=== PATIENT | female | born 1960 | race African-American/Black ===

== ENCOUNTER 2021-09-14 09:17 | Inpatient (IN) | payer MEDICARE, MEDICAID ==
[~2021-09-14] VITALS: Ht 154.9 cm; Wt 83.9 kg
[~2021-09-14 09:17] MED LIST: AMLO10TA80 PO; ASPI-1406 PO; BENA5TAB6 PO; CLON0.3T PO; COR3 PO; DULO30CA2 PO; ESOM40CA PO; GABA-532 PO; INSLAN SQ; INSU100I3 SQ; LIP40 PO; METO5TAB2 PO; MILN50TA PO; NITR0.4T49 SL
[2021-09-14] MEDS ORDERED: KETOROLAC 30MG/ML VIAL IV STA (10:04)
[2021-09-14 10:26] LABS: HEMOGLOBIN. 10.2 g/dL (12.0-16.0); MEAN CORPUSCULAR HEMOGLOBIN 24.7 pg (28.0-32.0); MEAN CORPUSCULAR VOLUME 74.8 fL (81.0-99.0); MEAN PLATELET VOLUME 8.8 fl (7.4-10.4); PLATELET 319 x1000/uL (130-400); RED BLOOD CELL COUNT 4.14 mill/uL (4.2-5.4); RED CELL DISTRIBUTION WIDTH 17.8 % (11.6-14.6)
[2021-09-14 10:31] LABS: CHLORIDE 92 mEq/L (98-107)
[2021-09-14 11:07] LABS: PLATELET ESTIMATE NORMAL
[2021-09-14 11:37] LABS: CLARITY URINE CLOUDY (CLEAR); COLOR URINE YELLOW (YELLOW); KETONES URINE NEGATIVE (NEGATIVE); LEUKOCYTE ESTERASE URINE NEGATIVE (NEGATIVE); NITRITE URINE NEGATIVE (NEGATIVE); OCCULT BLOOD URINE TRACE (NEGATIVE); PROTEIN URINE 3+ (NEGATIVE); SPECIFIC GRAVITY URINE 1.023 (1.005-1.030); UROBILINOGEN URINE 0.2 E.U./dL (0.2-1.0)
[2021-09-14] MEDS ORDERED: ONDANSETRON HCL 4MG/2ML INJ IV STA (11:58)
[2021-09-14] MEDS ORDERED: MORPHINE SULFATE 4 MG/ML CPJ (NOT FOR IM USE) IV STA (11:58)
[2021-09-14] MEDS ORDERED: SODIUM CHLORIDE 0.9% 1,000 ML IV ONE (12:00)
[2021-09-14] MEDS ORDERED: PIPERACILLIN/TAZ 3.375G PREMIX 50 ML IV SCH (13:15)
[2021-09-14] MEDS ORDERED: PIPERACILLIN/TAZOBACTAM 3.375GM/50ML PREMIX IV ONE (13:15)
[2021-09-14] MEDS ORDERED: INSULIN REGULAR (HUMULIN R) 300UNITS/3ML VIAL SUBCUT ONE (13:45)
[2021-09-14] MEDS ORDERED: ONDANSETRON HCL 4MG/2ML INJ IV PRN (15:00)
[2021-09-14] MEDS ORDERED: ENOXAPARIN 40MG/0.4ML SYR SUBCUT SCH (15:00)
[2021-09-14] MEDS ORDERED: DIPHENHYDRAMINE 50MG/ML VIAL IV PRN (15:00)
[2021-09-14] MEDS ORDERED: CLONIDINE 0.1MG TABLET PO PRN (15:00)
[2021-09-14] MEDS ORDERED: IPRATROPIUM/ALBUTEROL 0.5-3(2.5)MG/3ML NEB HHN PRN (15:00)
[2021-09-14 16:00] VITALS: BP 125/65
[2021-09-14] MEDS ORDERED: GABA-290 PO (16:24)
[2021-09-14] MEDS ORDERED: CYCL25PO15 MT (16:24)
[2021-09-14] MEDS ORDERED: INSU100I28 SQ (16:24)
[2021-09-14] MEDS ORDERED: CLON0.3T PO (16:24)
[2021-09-14] MEDS ORDERED: CARV25TA47 PO (16:24)
[2021-09-14] MEDS ORDERED: AMLO10TA80 PO (16:24)
[2021-09-14] MEDS ORDERED: DEXTROSE 50% WATER 50ML SYRINGE IV PRN (18:45)
[2021-09-14 20:00] VITALS: BP 145/70
[2021-09-14] MEDS: ENOXAPARIN 40MG/0.4ML SYR SUBCUT SCH (21:38)
[2021-09-14] MEDS: INSULIN LISPRO 100 UNITS/ML SUBCUT SCH (21:39)
[2021-09-14] MEDS: BLOOD SUGAR DIAGNOSTIC STRIP TEST SCH (21:39)
[2021-09-14] MEDS: MORPHINE SULFATE 2 MG/ML CPJ (NOT FOR IM USE) IV PRN (21:49)
[2021-09-14] MEDS ORDERED: INSULIN GLARGINE UD 100 UNITS/ML SYR SUBCUT SCH (22:00)
[2021-09-14] MEDS ORDERED: NALOXONE HCL 0.4MG/ML VIAL IV PRN (22:30)
[2021-09-15] VITALS: BP 142/70
[2021-09-15 04:00] VITALS: BP 138/72
[2021-09-15] MEDS: MORPHINE SULFATE 2 MG/ML CPJ (NOT FOR IM USE) IV PRN ×2 (05:14→09:58)
[2021-09-15] MEDS: BLOOD SUGAR DIAGNOSTIC STRIP TEST SCH ×4 (06:21→21:00)
[2021-09-15] MEDS: INSULIN LISPRO 100 UNITS/ML SUBCUT SCH ×4 (06:21→22:27)
[2021-09-15 08:00] VITALS: BP 134/76
[2021-09-15 12:00] VITALS: BP 133/65
[2021-09-15] MEDS: AMLODIPINE 10MG TABLET PO SCH (12:37)
[2021-09-15] MEDS: CARVEDILOL 12.5MG TABLET PO SCH ×2 (14:45→22:20)
[2021-09-15] MEDS: GABAPENTIN 300MG CAPSULE PO SCH ×2 (14:45→16:32)
[2021-09-15 16:00] VITALS: BP 130/68
[2021-09-15] MEDS: ACETAMINOPHEN 325MG TABLET PO PRN (16:19)
[2021-09-15 20:00] VITALS: BP 148/86
[2021-09-15] MEDS ORDERED: BENAZEPRIL 5MG TABLET PO SCH (21:00)
[2021-09-15] MEDS ORDERED: CARVEDILOL 12.5MG TABLET PO SCH (21:00)
[2021-09-15] MEDS ORDERED: CARVEDILOL 3.125 MG TABLET PO SCH (21:00)
[2021-09-15] MEDS: ATORVASTATIN CALCIUM 40MG TABLET PO SCH (22:20)
[2021-09-15] MEDS: ENOXAPARIN 40MG/0.4ML SYR SUBCUT SCH (22:26)
[2021-09-15] MEDS: HYDROCODONE/APAP 7.5/325MG 1 TAB TABLET PO PRN (22:41)
[2021-09-16] VITALS: BP 121/57
[2021-09-16] MEDS: INSULIN GLARGINE UD 100 UNITS/ML SYR SUBCUT SCH ×2 (02:04→21:47)
[2021-09-16 04:00] VITALS: BP 143/77
[2021-09-16 06:41] LABS: HEMATOCRIT. 25.5 % (36.0-48.0); HEMOGLOBIN. 8.5 g/dL (12.0-16.0); MEAN CORPUSCULAR HEMOGLOBIN 25.2 pg (28.0-32.0); MEAN CORPUSCULAR VOLUME 75.3 fL (81.0-99.0); PLATELET 312 x1000/uL (130-400); RED BLOOD CELL COUNT 3.39 mill/uL (4.2-5.4); RED CELL DISTRIBUTION WIDTH 18.1 % (11.6-14.6)
[2021-09-16] MEDS: BLOOD SUGAR DIAGNOSTIC STRIP TEST SCH ×4 (06:53→21:39)
[2021-09-16] MEDS: INSULIN LISPRO 100 UNITS/ML SUBCUT SCH ×4 (06:54→21:46)
[2021-09-16 07:15] LABS: PHOSPHORUS 4.1 mg/dL (2.5-4.9)
[2021-09-16 08:00] VITALS: BP 141/78
[2021-09-16] MEDS: CARVEDILOL 12.5MG TABLET PO SCH ×2 (08:15→21:45)
[2021-09-16] MEDS: AMLODIPINE 10MG TABLET PO SCH (08:15)
[2021-09-16] MEDS: GABAPENTIN 300MG CAPSULE PO SCH ×3 (09:36→17:43)
[2021-09-16] MEDS: HYDROCODONE/APAP 7.5/325MG 1 TAB TABLET PO PRN ×2 (09:37→17:47)
[2021-09-16 12:00] VITALS: BP 134/71
[2021-09-16 13:39] LABS: PLATELET ESTIMATE NORMAL
[2021-09-16] MEDS: SODIUM CHLORIDE 0.9% 1,000 ML IV SCH (14:50)
[2021-09-16] MEDS: ACETAMINOPHEN 325MG TABLET PO PRN ×2 (14:54→23:04)
[2021-09-16 16:00] VITALS: BP 140/78
[2021-09-16] MEDS: MORPHINE SULFATE 2 MG/ML CPJ (NOT FOR IM USE) IV PRN (19:49)
[2021-09-16 20:00] VITALS: BP 129/73
[2021-09-16 21:44] LABS: CLARITY URINE CLOUDY (CLEAR); COLOR URINE DARK YELLOW (YELLOW); KETONES URINE NEGATIVE (NEGATIVE); LEUKOCYTE ESTERASE URINE NEGATIVE (NEGATIVE); NITRITE URINE NEGATIVE (NEGATIVE); OCCULT BLOOD URINE NEGATIVE (NEGATIVE); PROTEIN URINE 3+ (NEGATIVE); SPECIFIC GRAVITY URINE 1.019 (1.005-1.030)
[2021-09-16] MEDS: ATORVASTATIN CALCIUM 40MG TABLET PO SCH (21:44)
[2021-09-16] MEDS: ENOXAPARIN 30MG/0.3ML SYR SUBCUT SCH (21:44)
[2021-09-16] MEDS: PIPERACILLIN/TAZOBACTAM 3.375G in DEXT 5% WATER 50ML IV SCH (22:46)
[2021-09-17] VITALS: BP 128/64
[2021-09-17 03:35] VITALS: BP 125/67
[2021-09-17] MEDS: MORPHINE SULFATE 2 MG/ML CPJ (NOT FOR IM USE) IV PRN ×2 (03:37→14:07)
[2021-09-17] MEDS: PIPERACILLIN/TAZOBACTAM 3.375G in DEXT 5% WATER 50ML IV SCH ×3 (05:09→21:20)
[2021-09-17] MEDS: ACETAMINOPHEN 325MG TABLET PO PRN ×3 (05:13→18:39)
[2021-09-17] MEDS: INSULIN LISPRO 100 UNITS/ML SUBCUT SCH ×4 (06:30→21:27)
[2021-09-17] MEDS: BLOOD SUGAR DIAGNOSTIC STRIP TEST SCH ×4 (06:30→21:14)
[2021-09-17 06:48] LABS: HEMATOCRIT. 23.9 % (36.0-48.0); HEMOGLOBIN. 7.9 g/dL (12.0-16.0); MEAN CORPUSCULAR HEMOGLOBIN 25.1 pg (28.0-32.0); MEAN CORPUSCULAR VOLUME 75.6 fL (81.0-99.0); MEAN PLATELET VOLUME 9.2 fl (7.4-10.4); PLATELET 307 x1000/uL (130-400); RED BLOOD CELL COUNT 3.16 mill/uL (4.2-5.4); RED CELL DISTRIBUTION WIDTH 17.9 % (11.6-14.6)
[2021-09-17 07:22] LABS: PHOSPHORUS 4.2 mg/dL (2.5-4.9)
[2021-09-17 08:00] VITALS: BP 117/59
[2021-09-17 08:11] LABS: MICROALBUMIN RANDOM URINE 2042.5 ug/mL (Not Estab.)
[2021-09-17] MEDS: GABAPENTIN 300MG CAPSULE PO SCH ×3 (09:32→17:31)
[2021-09-17] MEDS: AMLODIPINE 10MG TABLET PO SCH (09:33)
[2021-09-17] MEDS: CARVEDILOL 12.5MG TABLET PO SCH ×2 (09:35→21:00)
[2021-09-17] MEDS: SODIUM CHLORIDE 0.9% 1,000 ML IV SCH (09:35)
[2021-09-17 12:00] VITALS: BP 133/61
[2021-09-17 16:00] VITALS: BP 126/59
[2021-09-17] MEDS: HYDROCODONE/APAP 7.5/325MG 1 TAB TABLET PO PRN (17:32)
[2021-09-17] MEDS: POLYETHYLENE GLYCOL 3350 (17GM) 1 DOSE PACK PO SCH (18:39)
[2021-09-17 20:00] VITALS: BP 116/61
[2021-09-17 20:08] LABS: PLATELET ESTIMATE NORMAL
[2021-09-17] MEDS: ENOXAPARIN 30MG/0.3ML SYR SUBCUT SCH (21:20)
[2021-09-17] MEDS: ATORVASTATIN CALCIUM 40MG TABLET PO SCH (21:22)
[2021-09-17] MEDS: INSULIN GLARGINE UD 100 UNITS/ML SYR SUBCUT SCH (21:34)
[2021-09-18] VITALS: BP 102/52
[2021-09-18 04:00] VITALS: BP 130/69
[2021-09-18] MEDS: SODIUM CHLORIDE 0.9% 1,000 ML IV SCH (05:14)
[2021-09-18] MEDS: PIPERACILLIN/TAZOBACTAM 3.375G in DEXT 5% WATER 50ML IV SCH ×3 (05:15→22:01)
[2021-09-18] MEDS: BLOOD SUGAR DIAGNOSTIC STRIP TEST SCH ×4 (06:39→21:32)
[2021-09-18] MEDS: INSULIN LISPRO 100 UNITS/ML SUBCUT SCH ×4 (06:40→21:00)
[2021-09-18 07:42] LABS: PHOSPHORUS 4.5 mg/dL (2.5-4.9)
[2021-09-18 08:00] VITALS: BP 121/61
[2021-09-18 08:06] LABS: HEMATOCRIT. 25.4 % (36.0-48.0); HEMOGLOBIN. 8.2 g/dL (12.0-16.0); MEAN CORPUSCULAR HEMOGLOBIN 24.3 pg (28.0-32.0); MEAN CORPUSCULAR VOLUME 74.9 fL (81.0-99.0); MEAN PLATELET VOLUME 9.3 fl (7.4-10.4); PLATELET 415 x1000/uL (130-400); RED BLOOD CELL COUNT 3.39 mill/uL (4.2-5.4); RED CELL DISTRIBUTION WIDTH 17.8 % (11.6-14.6)
[2021-09-18] MEDS: GABAPENTIN 300MG CAPSULE PO SCH ×3 (09:54→18:07)
[2021-09-18] MEDS: POLYETHYLENE GLYCOL 3350 (17GM) 1 DOSE PACK PO SCH (09:54)
[2021-09-18] MEDS: CARVEDILOL 12.5MG TABLET PO SCH ×2 (09:55→21:35)
[2021-09-18] MEDS: AMLODIPINE 10MG TABLET PO SCH (09:56)
[2021-09-18] MEDS: HYDROCODONE/APAP 7.5/325MG 1 TAB TABLET PO PRN (09:57)
[2021-09-18 12:00] VITALS: BP 119/51
[2021-09-18 16:30] VITALS: BP 127/77
[2021-09-18 20:00] VITALS: BP 137/77
[2021-09-18 20:16] LABS: PLATELET ESTIMATE NORMAL
[2021-09-18] MEDS: INSULIN GLARGINE UD 100 UNITS/ML SYR SUBCUT SCH (21:37)
[2021-09-18] MEDS: ATORVASTATIN CALCIUM 40MG TABLET PO SCH (21:38)
[2021-09-18] MEDS: ENOXAPARIN 30MG/0.3ML SYR SUBCUT SCH (21:39)
[2021-09-18] MEDS: ACETAMINOPHEN 325MG TABLET PO PRN (21:39)
[2021-09-19] VITALS: BP 129/76
[2021-09-19 04:00] VITALS: BP 122/74
[2021-09-19] MEDS: MORPHINE SULFATE 2 MG/ML CPJ (NOT FOR IM USE) IV PRN (04:55)
[2021-09-19] MEDS: ACETAMINOPHEN 325MG TABLET PO PRN (05:24)
[2021-09-19] MEDS: SODIUM CHLORIDE 0.9% 1,000 ML IV SCH ×2 (05:25→23:26)
[2021-09-19] MEDS: INSULIN LISPRO 100 UNITS/ML SUBCUT SCH ×4 (06:12→22:06)
[2021-09-19 06:21] LABS: HEMATOCRIT. 23.9 % (36.0-48.0); HEMOGLOBIN. 7.9 g/dL (12.0-16.0); MEAN CORPUSCULAR HEMOGLOBIN 24.7 pg (28.0-32.0); MEAN CORPUSCULAR VOLUME 74.6 fL (81.0-99.0); MEAN PLATELET VOLUME 9.3 fl (7.4-10.4); PLATELET 485 x1000/uL (130-400); RED CELL DISTRIBUTION WIDTH 17.6 % (11.6-14.6)
[2021-09-19 06:50] LABS: PHOSPHORUS 4.8 mg/dL (2.5-4.9)
[2021-09-19] MEDS: BLOOD SUGAR DIAGNOSTIC STRIP TEST SCH ×4 (07:51→21:26)
[2021-09-19 08:00] VITALS: BP 134/74
[2021-09-19] MEDS: PIPERACILLIN/TAZOBACTAM 3.375G in DEXT 5% WATER 50ML IV SCH ×2 (09:12→22:03)
[2021-09-19] MEDS: CARVEDILOL 12.5MG TABLET PO SCH ×2 (09:13→22:04)
[2021-09-19] MEDS: POLYETHYLENE GLYCOL 3350 (17GM) 1 DOSE PACK PO SCH (09:13)
[2021-09-19] MEDS: GABAPENTIN 300MG CAPSULE PO SCH ×3 (09:13→17:02)
[2021-09-19] MEDS: AMLODIPINE 10MG TABLET PO SCH (09:14)
[2021-09-19] MEDS: HYDROCODONE/APAP 7.5/325MG 1 TAB TABLET PO PRN ×3 (09:40→23:37)
[2021-09-19 12:00] VITALS: BP 115/79
[2021-09-19 14:28] LABS: NUCLEATED RED BLOOD CELLS 1 /100 WBC; PLATELET ESTIMATE INCREASED
[2021-09-19 16:00] VITALS: BP 141/61
[2021-09-19 20:00] VITALS: BP 134/72
[2021-09-19] MEDS: ENOXAPARIN 30MG/0.3ML SYR SUBCUT SCH (20:00)
[2021-09-19] MEDS: ATORVASTATIN CALCIUM 40MG TABLET PO SCH (22:01)
[2021-09-19] MEDS: INSULIN GLARGINE UD 100 UNITS/ML SYR SUBCUT SCH (22:05)
[2021-09-19] MEDS: MEROPENEM 1,000 MG in SODIUM CHLORIDE 0.9% 100 ML IV SCH (23:26)
[2021-09-20] VITALS: BP 126/66
[2021-09-20 04:00] VITALS: BP 121/62
[2021-09-20] MEDS: BLOOD SUGAR DIAGNOSTIC STRIP TEST SCH ×4 (06:31→20:27)
[2021-09-20 08:00] VITALS: BP 132/69
[2021-09-20 08:23] LABS: BASOPHILS % 0.4 % (0.0-2.0); EOSINOPHILS % 0.6 % (0.0-5.0); HEMATOCRIT. 22.4 % (36.0-48.0); HEMOGLOBIN. 7.5 g/dL (12.0-16.0); LYMPHOCYTES % 9.3 % (20.0-50.0); MEAN CORPUSCULAR HEMOGLOBIN 25.2 pg (28.0-32.0); MEAN CORPUSCULAR VOLUME 75.3 fL (81.0-99.0); MEAN PLATELET VOLUME 9.4 fl (7.4-10.4); MONOCYTES % 13.3 % (2.0-8.0); NEUTROPHILS % 76.4 % (40.0-76.0); PLATELET 508 x1000/uL (130-400); RED BLOOD CELL COUNT 2.98 mill/uL (4.2-5.4)
[2021-09-20] MEDS: CARVEDILOL 12.5MG TABLET PO SCH ×2 (08:34→20:26)
[2021-09-20] MEDS: GABAPENTIN 300MG CAPSULE PO SCH ×3 (08:34→17:48)
[2021-09-20] MEDS: AMLODIPINE 10MG TABLET PO SCH (08:35)
[2021-09-20] MEDS: INSULIN LISPRO 100 UNITS/ML SUBCUT SCH ×4 (08:36→20:28)
[2021-09-20] MEDS: POLYETHYLENE GLYCOL 3350 (17GM) 1 DOSE PACK PO SCH (09:00)
[2021-09-20 09:26] LABS: PHOSPHORUS 5.4 mg/dL (2.5-4.9)
[2021-09-20 12:00] VITALS: BP 110/66
[2021-09-20 16:00] VITALS: BP 121/70
[2021-09-20] MEDS: SODIUM CHLORIDE 0.9% 1,000 ML IV SCH (17:47)
[2021-09-20] MEDS: MEROPENEM 1,000 MG in SODIUM CHLORIDE 0.9% 100 ML IV SCH (17:48)
[2021-09-20] MEDS: HYDROCODONE/APAP 7.5/325MG 1 TAB TABLET PO PRN (18:12)
[2021-09-20 20:00] VITALS: BP 124/70
[2021-09-20] MEDS: ATORVASTATIN CALCIUM 40MG TABLET PO SCH (20:25)
[2021-09-20] MEDS: ENOXAPARIN 30MG/0.3ML SYR SUBCUT SCH (20:26)
[2021-09-20] MEDS: INSULIN GLARGINE UD 100 UNITS/ML SYR SUBCUT SCH (21:09)
[2021-09-21] VITALS: BP 110/66
[2021-09-21] MEDS: HYDROCODONE/APAP 7.5/325MG 1 TAB TABLET PO PRN ×3 (01:04→21:46)
[2021-09-21 04:00] VITALS: BP 125/72
[2021-09-21] MEDS: BLOOD SUGAR DIAGNOSTIC STRIP TEST SCH ×4 (06:20→21:35)
[2021-09-21] MEDS: INSULIN LISPRO 100 UNITS/ML SUBCUT SCH ×4 (06:21→21:20)
[2021-09-21 07:18] LABS: BASOPHILS % 0.3 % (0.0-2.0); EOSINOPHILS % 0.4 % (0.0-5.0); HEMOGLOBIN. 7.7 g/dL (12.0-16.0); LYMPHOCYTES % 11.4 % (20.0-50.0); MEAN CORPUSCULAR HEMOGLOBIN 24.8 pg (28.0-32.0); MEAN PLATELET VOLUME 9.3 fl (7.4-10.4); MONOCYTES % 13.9 % (2.0-8.0); PLATELET 618 x1000/uL (130-400); RED CELL DISTRIBUTION WIDTH 17.7 % (11.6-14.6)
[2021-09-21 07:21] LABS: CHLORIDE 94 mEq/L (98-107)
[2021-09-21 07:29] LABS: PHOSPHORUS 5.6 mg/dL (2.5-4.9)
[2021-09-21 08:00] VITALS: BP 123/57
[2021-09-21] MEDS: POLYETHYLENE GLYCOL 3350 (17GM) 1 DOSE PACK PO SCH (09:00)
[2021-09-21] MEDS: AMLODIPINE 10MG TABLET PO SCH (09:00)
[2021-09-21] MEDS: CARVEDILOL 12.5MG TABLET PO SCH ×2 (09:49→21:18)
[2021-09-21] MEDS: GABAPENTIN 300MG CAPSULE PO SCH ×3 (09:49→17:18)
[2021-09-21 12:00] VITALS: BP 100/70
[2021-09-21] MEDS: SODIUM CHLORIDE 0.9% 1,000 ML IV SCH (13:56)
[2021-09-21] MEDS: ACETAMINOPHEN 325MG TABLET PO PRN (13:56)
[2021-09-21 16:00] VITALS: BP 134/70
[2021-09-21] MEDS: MEROPENEM 1,000 MG in SODIUM CHLORIDE 0.9% 100 ML IV SCH (17:18)
[2021-09-21 20:00] VITALS: BP 127/63
[2021-09-21] MEDS: ATORVASTATIN CALCIUM 40MG TABLET PO SCH (21:18)
[2021-09-21] MEDS: ENOXAPARIN 30MG/0.3ML SYR SUBCUT SCH (21:18)
[2021-09-21] MEDS: INSULIN GLARGINE UD 100 UNITS/ML SYR SUBCUT SCH (21:35)
[2021-09-22] VITALS (7 sets, daily range): BP systolic 107–140; BP diastolic 55–73
[2021-09-22] MEDS: BLOOD SUGAR DIAGNOSTIC STRIP TEST SCH ×4 (06:12→21:11)
[2021-09-22] MEDS: INSULIN LISPRO 100 UNITS/ML SUBCUT SCH ×4 (07:40→21:10)
[2021-09-22] MEDS: HYDROCODONE/APAP 7.5/325MG 1 TAB TABLET PO PRN ×2 (08:52→17:34)
[2021-09-22] MEDS: GABAPENTIN 300MG CAPSULE PO SCH ×3 (08:53→17:33)
[2021-09-22] MEDS: CARVEDILOL 12.5MG TABLET PO SCH ×2 (08:53→21:00)
[2021-09-22] MEDS: POLYETHYLENE GLYCOL 3350 (17GM) 1 DOSE PACK PO SCH (08:54)
[2021-09-22] MEDS: AMLODIPINE 10MG TABLET PO SCH (08:54)
[2021-09-22] MEDS: MEROPENEM 1,000 MG in SODIUM CHLORIDE 0.9% 100 ML IV SCH (17:38)
[2021-09-22] MEDS: ENOXAPARIN 30MG/0.3ML SYR SUBCUT SCH (20:00)
[2021-09-22] MEDS: ATORVASTATIN CALCIUM 40MG TABLET PO SCH (21:00)
[2021-09-22] MEDS: INSULIN GLARGINE UD 100 UNITS/ML SYR SUBCUT SCH (21:11)
[2021-09-23] VITALS: BP 129/77
== END 2021-09-23 02:50 | disposition short-term general hospital (02) | DRG 754 ==
LOC: ER 09:17 → EDBEDREQTM 13:02 → EDBEDREQ 13:02 → EDBEDREQSVC 13:02 → ENRESERV 13:23 → ER 15:29 → 8WST 18:00 → UNDODISIN 09-17 09:50
PROVIDERS: ADMIT Internal Medicine; ATTEND Internal Medicine
DX: C56.9 Malignant neoplasm of unspecified ovary (principal); E43 Unspecified severe protein-calorie malnutrition; E87.1 Hypo-osmolality and hyponatremia; I13.0 Hypertensive heart and chronic kidney disease with heart failure and stage 1 through stage 4 chronic kidney disease, or unspecified chronic kidney disease; N17.9 Acute kidney failure, unspecified; N18.4 Chronic kidney disease, stage 4 (severe); I31.3 Pericardial effusion (noninflammatory); N13.30 Unspecified hydronephrosis; R65.10 Systemic inflammatory response syndrome (SIRS) of non-infectious origin without acute organ dysfunction; K82.8 Other specified diseases of gallbladder; D50.9 Iron deficiency anemia, unspecified; E11.42 Type 2 diabetes mellitus with diabetic polyneuropathy; E66.01 Morbid (severe) obesity due to excess calories; D72.825 Bandemia; E11.22 Type 2 diabetes mellitus with diabetic chronic kidney disease; E11.65 Type 2 diabetes mellitus with hyperglycemia; I50.9 Heart failure, unspecified; E78.5 Hyperlipidemia, unspecified; Z90.710 Acquired absence of both cervix and uterus; Z88.8 Allergy status to other drugs, medicaments and biological substances; Z91.018 Allergy to other foods; Z79.899 Other long term (current) drug therapy; Z79.82 Long term (current) use of aspirin; Z68.35 Body mass index [BMI] 35.0-35.9, adult
CPT/HCPCS: 36415; 71045; 74176; 76700; 76856; 78227; 80048; 80053; 80076; 81003; 82043; 82550; 82570; 82962; 83036; 83735; 83880; 83935; 84100; 84145; 84300; 84484; 85025; 86304; 93005; 93306; 93970; 99285; A9537; C1893; J1650; J1815; J1885; J2185; J2270; J2405; J2543; J7030; J7050; J7060

== ENCOUNTER 2022-01-17 23:55 | Emergency (ER) | payer MEDICARE, MEDICAID ==
[~2022-01-17] VITALS: Ht 154.9 cm; Wt 69.0 kg
[~2022-01-17 23:55] MED LIST changes: +CARV25TA47 PO; +CYCL25PO15 MT; +GABA-290 PO; +INSU100I28 SQ
[2022-01-18 00:10] VITALS: BP 144/80
[2022-01-18] MEDS ORDERED: TETRACAINE 0.5% OPHTH DROPS 4ML LEFTEYE ONE (01:00)
[2022-01-18] MEDS ORDERED: FLUORESCEIN SODIUM 1MG/STRIP LEFTEYE ONE (01:00)
[2022-01-18] MEDS ORDERED: AZITHROMYCIN 500 MG TABLET PO ONE (01:45)
== END 2022-01-18 02:25 | disposition home or self-care (01) ==
LOC: ER 23:55
DX: H57.12 Ocular pain, left eye (principal); H53.8 Other visual disturbances; I11.0 Hypertensive heart disease with heart failure; I50.9 Heart failure, unspecified; E11.9 Type 2 diabetes mellitus without complications; Z90.710 Acquired absence of both cervix and uterus; Z79.899 Other long term (current) drug therapy
CPT/HCPCS: 82962; 99284

== ENCOUNTER 2022-08-02 11:06 | Inpatient (IN) | payer MEDICARE, MEDICAID ==
[~2022-08-02] VITALS: Ht 153.4 cm; Wt 84.4 kg
[2022-08-02] VITALS (16 sets, daily range): BP systolic 143–171; BP diastolic 75–115
[~2022-08-02 11:06] MED LIST changes: +BENA5TAB40 PO; -BENA5TAB6 PO
[2022-08-02] MEDS ORDERED: ACETAMINOPHEN 650MG SUPP PR STA (11:23)
[2022-08-02 12:04] LABS: BASOPHILS % 1.3 % (0.0-2.0); EOSINOPHILS % 3.7 % (0.0-5.0); HEMATOCRIT. 31.4 % (36.0-48.0); HEMOGLOBIN. 9.9 g/dL (12.0-16.0); LYMPHOCYTES % 21.6 % (20.0-50.0); MEAN CORPUSCULAR HEMOGLOBIN 25.3 pg (28.0-32.0); MEAN CORPUSCULAR VOLUME 79.8 fL (81.0-99.0); MEAN PLATELET VOLUME 7.9 fl (7.4-10.4); MONOCYTES % 7.5 % (2.0-8.0); NEUTROPHILS % 65.9 % (40.0-76.0); PLATELET 167 x1000/uL (130-400); RED BLOOD CELL COUNT 3.93 mill/uL (4.2-5.4); RED CELL DISTRIBUTION WIDTH 23.3 % (11.6-14.6)
[2022-08-02 12:13] LABS: CHLORIDE 107 mEq/L (98-107)
[2022-08-02] MEDS: ACETAMINOPHEN 325MG SUPP PR SCH ×2 (12:14→13:04)
[2022-08-02 12:24] LABS: BG BASE EXCESS -6.3 mmol/L (-2.0-2.0); BG CARBOXYHEMOGLOBIN 0.3 % (0.5-1.5); BG DEOXYHEMOGLOBIN 3.9 % (0.0-5.0); BG FRACTION INSPIRED OXYGEN 36; BG HCO3 ACT 21.9 mmol/L (22.0-26.0); BG METHEMOGLOBIN 0.1 % (0.0-1.5); BG OXYGEN SATURATION 96.1 % (92.0-98.5); BG OXYHEMOGLOBIN 95.7 % (94.0-97.0); BG PCO2 57.1 mmHg (35.0-45.0); BG PH 7.202 (7.350-7.450); BG PO2 99.6 mmHg (75.0-100.0); BG TOTAL HEMOGLOBIN 10.5 g/dL (12.0-18.0); BG VENT MODE NASAL CANNULA
[2022-08-02 12:26] LABS: CLARITY URINE CLEAR (CLEAR); COLOR URINE YELLOW (YELLOW); KETONES URINE TRACE (NEGATIVE); LEUKOCYTE ESTERASE URINE NEGATIVE (NEGATIVE); NITRITE URINE NEGATIVE (NEGATIVE); OCCULT BLOOD URINE NEGATIVE (NEGATIVE); PROTEIN URINE 3+ (NEGATIVE)
[2022-08-02] MEDS ORDERED: VANCOMYCIN 1G PREMIX 200 ML IV NR (12:30)
[2022-08-02] MEDS ORDERED: PIPERACILLIN/TAZ 3.375G PREMIX 50 ML IV NR (12:30)
[2022-08-02 13:44] LABS: PLATELET ESTIMATE NORMAL
[2022-08-02] MEDS ORDERED: MIDAZOLAM HCL 100 MG in DEXT 5% WATER 80 ML IV ONE (13:45)
[2022-08-02] MEDS ORDERED: FUROSEMIDE 40MG/4ML VIAL IVP SCH (13:45)
[2022-08-02 13:48] LABS: CREATINE KINASE 329 IU/L (26-192); ETHANOL BLOOD < 10 mg/dL
[2022-08-02 13:58] LABS: *AMPHETAMINES SCREEN URINE NEGATIVE (NEGATIVE); *BARBITURATES SCREEN URINE NEGATIVE (NEGATIVE); *BENZODIAZEPINES SCREEN URINE NEGATIVE (NEGATIVE); *COCAINE SCREEN URINE NEGATIVE (NEGATIVE); CANNABINOID URINE SCREEN NEGATIVE (NEGATIVE); METHADONE URINE SCREEN NEGATIVE (NEGATIVE); OPIATES URINE SCREEN NEGATIVE (NEGATIVE); PHENCYCLIDINE URINE SCREEN NEGATIVE (NEGATIVE)
[2022-08-02 14:40] LABS: BG BASE EXCESS -1.8 mmol/L (-2.0-2.0); BG CARBOXYHEMOGLOBIN 1.3 % (0.5-1.5); BG DEOXYHEMOGLOBIN 2.6 % (0.0-5.0); BG FRACTION INSPIRED OXYGEN 60; BG HCO3 ACT 22.8 mmol/L (22.0-26.0); BG METHEMOGLOBIN 0.2 % (0.0-1.5); BG OXYGEN SATURATION 97.4 % (92.0-98.5); BG OXYHEMOGLOBIN 95.9 % (94.0-97.0); BG PCO2 38.4 mmHg (35.0-45.0); BG PH 7.392 (7.350-7.450); BG PO2 91.2 mmHg (75.0-100.0); BG SAMPLE SITE RIGHT RADIAL; BG TOTAL HEMOGLOBIN 11.3 g/dL (12.0-18.0); BG VENT MODE VENT - AC
[2022-08-02 15:30] LABS: INR 1.2; PROTHROMBIN TIME 12.4 sec (9.6-11.0)
[2022-08-02] MEDS: PROPOFOL 10MG/ML 100ML 100 ML IV PRN (17:42)
[2022-08-02] MEDS ORDERED: DEXTROSE 50% WATER 50ML SYRINGE IV PRN (17:45)
[2022-08-02] MEDS ORDERED: IPRATROPIUM/ALBUTEROL 0.5-3(2.5)MG/3ML NEB NEB PRN (17:45)
[2022-08-02] MEDS ORDERED: ONDANSETRON HCL 4MG/2ML INJ IV PRN (17:45)
[2022-08-02] MEDS: BLOOD SUGAR DIAGNOSTIC STRIP TEST SCH ×2 (18:02→21:00)
[2022-08-02] MEDS: INSULIN LISPRO 100 UNITS/ML SUBCUT SCH ×2 (18:09→21:00)
[2022-08-02] MEDS ORDERED: SODIUM CHLORIDE 0.9% 1,000 ML IV SCH (18:15)
[2022-08-02] MEDS ORDERED: ISOS20TA57 MT (19:01)
[2022-08-02] MEDS ORDERED: POTA-205 MT (19:01)
[2022-08-02] MEDS: IPRATROPIUM/ALBUTEROL 0.5-3(2.5)MG/3ML NEB HHN SCH (20:00)
[2022-08-02 20:18] LABS: TOTAL IRON BINDING CAPACITY 312 ug/dL (250-450)
[2022-08-02] MEDS: ENOXAPARIN 30MG/0.3ML SYR SUBCUT SCH (20:47)
[2022-08-02 20:58] LABS: FERRITIN 113 ng/mL (10-291)
[2022-08-02 21:09] LABS: VITAMIN B12 SERUM 906 pg/mL (211-911)
[2022-08-03] VITALS (42 sets, daily range): BP systolic 85–175; BP diastolic 52–126
[2022-08-03] MEDS: IPRATROPIUM/ALBUTEROL 0.5-3(2.5)MG/3ML NEB HHN SCH ×4 (02:25→20:37)
[2022-08-03] MEDS: PROPOFOL 10MG/ML 100ML 100 ML IV PRN ×3 (03:02→22:39)
[2022-08-03 05:11] LABS: BASOPHILS % 2.3 % (0.0-2.0); EOSINOPHILS % 6.2 % (0.0-5.0); HEMATOCRIT. 38.6 % (36.0-48.0); HEMOGLOBIN. 12.2 g/dL (12.0-16.0); MEAN CORPUSCULAR VOLUME 78.9 fL (81.0-99.0); MEAN PLATELET VOLUME 8.5 fl (7.4-10.4); MONOCYTES % 9.9 % (2.0-8.0); NEUTROPHILS % 58.6 % (40.0-76.0); PLATELET 177 x1000/uL (130-400); RED BLOOD CELL COUNT 4.89 mill/uL (4.2-5.4); RED CELL DISTRIBUTION WIDTH 23.2 % (11.6-14.6)
[2022-08-03 05:14] LABS: CHLORIDE 109 mEq/L (98-107)
[2022-08-03 05:16] LABS: INR 1.3; PROTHROMBIN TIME 13.5 sec (9.6-11.0)
[2022-08-03 05:26] LABS: CREATINE KINASE 291 IU/L (26-192)
[2022-08-03] MEDS ORDERED: LACTULOSE 20G/30ML UDC PO PRN (07:00)
[2022-08-03] MEDS: BLOOD SUGAR DIAGNOSTIC STRIP TEST SCH ×4 (07:50→21:00)
[2022-08-03] MEDS: FENTANYL 2500MCG/250ML PMX 250 ML IV PRN (08:07)
[2022-08-03] MEDS: INSULIN LISPRO 100 UNITS/ML SUBCUT SCH ×4 (08:20→21:00)
[2022-08-03 08:54] LABS: BG BASE EXCESS 0.7 mmol/L (-2.0-2.0); BG DEOXYHEMOGLOBIN 6.6 % (0.0-5.0); BG FRACTION INSPIRED OXYGEN 40; BG METHEMOGLOBIN 0.3 % (0.0-1.5); BG OXYGEN SATURATION 93.3 % (92.0-98.5); BG OXYHEMOGLOBIN 92.1 % (94.0-97.0); BG PCO2 44.5 mmHg (35.0-45.0); BG PH 7.385 (7.350-7.450); BG PO2 71.3 mmHg (75.0-100.0); BG SAMPLE SITE RIGHT RADIAL; BG TOTAL HEMOGLOBIN 13.1 g/dL (12.0-18.0); BG VENT MODE VENT - AC
[2022-08-03] MEDS ORDERED: LIDOCAINE HCL 1% 30ML VIAL (10MG/ML) ONE (09:03)
[2022-08-03] MEDS ORDERED: SODIUM BICARBONATE 4% (2.4MEQ) 5ML VIAL IV ONE (09:03)
[2022-08-03] MEDS: PANTOPRAZOLE SODIUM 40 MG/VIAL IV SCH (09:56)
[2022-08-03] MEDS: FUROSEMIDE 40MG/4ML VIAL IVP SCH (09:57)
[2022-08-03] MEDS: LACTULOSE 20G/30ML UDC PO SCH ×3 (11:58→23:13)
[2022-08-03 12:08] LABS: T4 FREE 1.22 ng/dL (0.76-1.46)
[2022-08-03] MEDS: HYDRALAZINE 20MG/ML VIAL IV PRN (12:55)
[2022-08-03] MEDS ORDERED: CEFTRIAXONE 1 G PREMIX 50 ML IV SCH (15:30)
[2022-08-03] MEDS: CEFTRIAXONE 1,000 MG in DEXTROSE 5% WATER 50 ML IV SCH (16:30)
[2022-08-03] MEDS: AZITHROMYCIN 500 MG in DEXT 5% WATER 250 ML IV SCH (17:00)
[2022-08-03 17:26] LABS: CREATINE KINASE MB FRACTION 2.8 ng/mL (0.5-3.6)
[2022-08-03] MEDS: ENOXAPARIN 30MG/0.3ML SYR SUBCUT SCH (21:17)
[2022-08-03] MEDS ORDERED: PROPOFOL 10MG/ML 100ML 100 ML IV PRN (22:30)
[2022-08-03 23:33] LABS: CREATINE KINASE MB FRACTION 1.9 ng/mL (0.5-3.6)
[2022-08-04] VITALS (47 sets, daily range): BP systolic 99–161; BP diastolic 56–113
[2022-08-04] MEDS: IPRATROPIUM/ALBUTEROL 0.5-3(2.5)MG/3ML NEB HHN SCH ×4 (01:03→20:21)
[2022-08-04 06:50] LABS: BASOPHILS % 0.5 % (0.0-2.0); EOSINOPHILS % 3.2 % (0.0-5.0); HEMATOCRIT. 36.1 % (36.0-48.0); HEMOGLOBIN. 11.5 g/dL (12.0-16.0); LYMPHOCYTES % 9.3 % (20.0-50.0); MEAN CORPUSCULAR HEMOGLOBIN 24.8 pg (28.0-32.0); MEAN CORPUSCULAR VOLUME 77.9 fL (81.0-99.0); MEAN PLATELET VOLUME 8.8 fl (7.4-10.4); MONOCYTES % 7.1 % (2.0-8.0); NEUTROPHILS % 79.9 % (40.0-76.0); PLATELET 182 x1000/uL (130-400); RED BLOOD CELL COUNT 4.64 mill/uL (4.2-5.4); RED CELL DISTRIBUTION WIDTH 24.1 % (11.6-14.6)
[2022-08-04 07:34] LABS: CREATINE KINASE MB FRACTION 1.5 ng/mL (0.5-3.6)
[2022-08-04 07:47] LABS: BG BASE EXCESS -1.3 mmol/L (-2.0-2.0); BG DEOXYHEMOGLOBIN 2.2 % (0.0-5.0); BG HCO3 ACT 23.2 mmol/L (22.0-26.0); BG METHEMOGLOBIN 0.1 % (0.0-1.5); BG OXYGEN SATURATION 97.8 % (92.0-98.5); BG OXYHEMOGLOBIN 97.7 % (94.0-97.0); BG PCO2 38.1 mmHg (35.0-45.0); BG PH 7.402 (7.350-7.450); BG PO2 111.1 mmHg (75.0-100.0); BG SAMPLE SITE RIGHT RADIAL; BG VENT MODE VENT - AC
[2022-08-04] MEDS: BLOOD SUGAR DIAGNOSTIC STRIP TEST SCH ×4 (07:50→21:03)
[2022-08-04] MEDS: INSULIN LISPRO 100 UNITS/ML SUBCUT SCH ×4 (08:20→21:14)
[2022-08-04] MEDS: LACTULOSE 20G/30ML UDC PO SCH ×3 (08:59→21:03)
[2022-08-04] MEDS: FUROSEMIDE 40MG/4ML VIAL IVP SCH (08:59)
[2022-08-04] MEDS: PANTOPRAZOLE SODIUM 40 MG/VIAL IV SCH (08:59)
[2022-08-04] MEDS ORDERED: PROPOFOL 10MG/ML 100ML 100 ML IV PRN (14:15)
[2022-08-04] MEDS: CEFTRIAXONE 1,000 MG in DEXTROSE 5% WATER 50 ML IV SCH (16:28)
[2022-08-04] MEDS: AZITHROMYCIN 500 MG in DEXT 5% WATER 250 ML IV SCH (17:46)
[2022-08-04] MEDS: ENOXAPARIN 30MG/0.3ML SYR SUBCUT SCH (21:03)
[2022-08-05] VITALS (59 sets, daily range): BP systolic 123–197; BP diastolic 61–112
[2022-08-05] MEDS: IPRATROPIUM/ALBUTEROL 0.5-3(2.5)MG/3ML NEB HHN SCH ×4 (01:25→20:15)
[2022-08-05 05:10] LABS: BASOPHILS % 0.4 % (0.0-2.0); EOSINOPHILS % 2.7 % (0.0-5.0); HEMATOCRIT. 30.6 % (36.0-48.0); HEMOGLOBIN. 9.9 g/dL (12.0-16.0); LYMPHOCYTES % 14.9 % (20.0-50.0); MEAN CORPUSCULAR HEMOGLOBIN 25.2 pg (28.0-32.0); MEAN PLATELET VOLUME 8.6 fl (7.4-10.4); MONOCYTES % 11.7 % (2.0-8.0); NEUTROPHILS % 70.3 % (40.0-76.0); PLATELET 165 x1000/uL (130-400); RED BLOOD CELL COUNT 3.93 mill/uL (4.2-5.4); RED CELL DISTRIBUTION WIDTH 24.5 % (11.6-14.6)
[2022-08-05 05:32] LABS: CHLORIDE 110 mEq/L (98-107)
[2022-08-05] MEDS: LACTULOSE 20G/30ML UDC PO SCH ×3 (06:20→21:04)
[2022-08-05] MEDS: BLOOD SUGAR DIAGNOSTIC STRIP TEST SCH ×4 (07:50→21:04)
[2022-08-05 07:59] LABS: BG BASE EXCESS -1.3 mmol/L (-2.0-2.0); BG CARBOXYHEMOGLOBIN 0.1 % (0.5-1.5); BG DEOXYHEMOGLOBIN 2.3 % (0.0-5.0); BG FRACTION INSPIRED OXYGEN 45; BG HCO3 ACT 23.3 mmol/L (22.0-26.0); BG METHEMOGLOBIN 0.3 % (0.0-1.5); BG OXYGEN SATURATION 97.7 % (92.0-98.5); BG OXYHEMOGLOBIN 97.3 % (94.0-97.0); BG PCO2 38.7 mmHg (35.0-45.0); BG PH 7.398 (7.350-7.450); BG PO2 107.3 mmHg (75.0-100.0); BG SAMPLE SITE LEFT RADIAL; BG TOTAL HEMOGLOBIN 11.8 g/dL (12.0-18.0); BG VENT MODE VENT - AC
[2022-08-05] MEDS: INSULIN LISPRO 100 UNITS/ML SUBCUT SCH ×4 (08:13→21:13)
[2022-08-05] MEDS: PANTOPRAZOLE SODIUM 40 MG/VIAL IV SCH (08:57)
[2022-08-05] MEDS: FUROSEMIDE 40MG/4ML VIAL IVP SCH (08:57)
[2022-08-05] MEDS ORDERED: POTASSIUM CHLORIDE 20MEQ/PACKET PO NR (11:15)
[2022-08-05] MEDS: FENTANYL 2500MCG/250ML PMX 250 ML IV PRN (12:03)
[2022-08-05] MEDS: HYDRALAZINE 20MG/ML VIAL IV PRN (15:32)
[2022-08-05] MEDS: CEFTRIAXONE 1,000 MG in DEXTROSE 5% WATER 50 ML IV SCH (15:32)
[2022-08-05] MEDS: AZITHROMYCIN 500 MG in DEXT 5% WATER 250 ML IV SCH (17:21)
[2022-08-05 18:16] LABS: BG BASE EXCESS -0.5 mmol/L (-2.0-2.0); BG CARBOXYHEMOGLOBIN 0.6 % (0.5-1.5); BG DEOXYHEMOGLOBIN 5.5 % (0.0-5.0); BG FRACTION INSPIRED OXYGEN 40; BG METHEMOGLOBIN 0.1 % (0.0-1.5); BG OXYGEN SATURATION 94.5 % (92.0-98.5); BG OXYHEMOGLOBIN 93.8 % (94.0-97.0); BG PCO2 64.8 mmHg (35.0-45.0); BG PH 7.253 (7.350-7.450); BG PO2 84.9 mmHg (75.0-100.0); BG SAMPLE SITE RIGHT RADIAL; BG TOTAL HEMOGLOBIN 12.7 g/dL (12.0-18.0); BG VENT MODE VENT - SIMV
[2022-08-05] MEDS: ENOXAPARIN 30MG/0.3ML SYR SUBCUT SCH (21:04)
[2022-08-05] MEDS: PROPOFOL 10MG/ML 100ML 100 ML IV PRN (21:14)
[2022-08-06] VITALS (51 sets, daily range): BP systolic 110–182; BP diastolic 57–113
[2022-08-06] MEDS: IPRATROPIUM/ALBUTEROL 0.5-3(2.5)MG/3ML NEB HHN SCH ×4 (01:58→19:49)
[2022-08-06 05:27] LABS: BASOPHILS % 0.3 % (0.0-2.0); EOSINOPHILS % 3.5 % (0.0-5.0); HEMATOCRIT. 35.2 % (36.0-48.0); HEMOGLOBIN. 11.4 g/dL (12.0-16.0); LYMPHOCYTES % 12.7 % (20.0-50.0); MEAN CORPUSCULAR HEMOGLOBIN 25.4 pg (28.0-32.0); MEAN CORPUSCULAR VOLUME 78.1 fL (81.0-99.0); MEAN PLATELET VOLUME 8.6 fl (7.4-10.4); MONOCYTES % 11.1 % (2.0-8.0); NEUTROPHILS % 72.4 % (40.0-76.0); PLATELET 187 x1000/uL (130-400); RED BLOOD CELL COUNT 4.51 mill/uL (4.2-5.4); RED CELL DISTRIBUTION WIDTH 23.4 % (11.6-14.6)
[2022-08-06 06:27] LABS: CANCER ANTIGEN 125 57.5 U/mL (0.0-38.1)
[2022-08-06] MEDS: HYDRALAZINE 20MG/ML VIAL IV PRN ×3 (07:10→12:14)
[2022-08-06] MEDS: LACTULOSE 20G/30ML UDC PO SCH ×3 (07:10→23:07)
[2022-08-06] MEDS: BLOOD SUGAR DIAGNOSTIC STRIP TEST SCH ×4 (07:50→21:00)
[2022-08-06 08:08] LABS: HBSAG SCREEN Negative (Negative)
[2022-08-06 08:17] LABS: BG BASE EXCESS 3.9 mmol/L (-2.0-2.0); BG CARBOXYHEMOGLOBIN 0.7 % (0.5-1.5); BG DEOXYHEMOGLOBIN 3.3 % (0.0-5.0); BG FRACTION INSPIRED OXYGEN 40; BG HCO3 ACT 28.3 mmol/L (22.0-26.0); BG METHEMOGLOBIN 0.2 % (0.0-1.5); BG OXYGEN SATURATION 96.7 % (92.0-98.5); BG OXYHEMOGLOBIN 95.8 % (94.0-97.0); BG PCO2 42.3 mmHg (35.0-45.0); BG PH 7.444 (7.350-7.450); BG PO2 89.5 mmHg (75.0-100.0); BG SAMPLE SITE RIGHT RADIAL; BG TOTAL HEMOGLOBIN 11.5 g/dL (12.0-18.0); BG VENT MODE VENT - AC
[2022-08-06] MEDS: INSULIN LISPRO 100 UNITS/ML SUBCUT SCH ×4 (08:20→21:00)
[2022-08-06 09:07] LABS: ANTI-NUCLEAR ANTIBODIES DIRECT Negative (Negative)
[2022-08-06] MEDS: FUROSEMIDE 40MG/4ML VIAL IVP SCH ×2 (09:25→18:47)
[2022-08-06] MEDS: PANTOPRAZOLE SODIUM 40 MG/VIAL IV SCH (09:30)
[2022-08-06] MEDS: PROPOFOL 10MG/ML 100ML 100 ML IV PRN ×2 (11:58→23:10)
[2022-08-06] MEDS: CARVEDILOL 3.125 MG TABLET PO SCH ×2 (12:22→23:06)
[2022-08-06] MEDS: CEFTRIAXONE 1,000 MG in DEXTROSE 5% WATER 50 ML IV SCH (16:30)
[2022-08-06] MEDS: AZITHROMYCIN 500 MG in DEXT 5% WATER 250 ML IV SCH (17:00)
[2022-08-06] MEDS: FENTANYL 2500MCG/250ML PMX 250 ML IV PRN (18:46)
[2022-08-06] MEDS: ENOXAPARIN 30MG/0.3ML SYR SUBCUT SCH (23:07)
[2022-08-07] VITALS (102 sets, daily range): BP systolic 122–227; BP diastolic 57–138
[2022-08-07] MEDS: IPRATROPIUM/ALBUTEROL 0.5-3(2.5)MG/3ML NEB HHN SCH ×4 (01:21→20:55)
[2022-08-07 04:07] LABS: PROTEIN C FUNCTIONAL 63 % (73-180)
[2022-08-07 05:24] LABS: BASOPHILS % 0.5 % (0.0-2.0); EOSINOPHILS % 7.3 % (0.0-5.0); HEMATOCRIT. 32.2 % (36.0-48.0); HEMOGLOBIN. 10.4 g/dL (12.0-16.0); LYMPHOCYTES % 15.8 % (20.0-50.0); MEAN CORPUSCULAR HEMOGLOBIN 25.2 pg (28.0-32.0); MEAN CORPUSCULAR VOLUME 77.9 fL (81.0-99.0); MEAN PLATELET VOLUME 8.3 fl (7.4-10.4); MONOCYTES % 12.9 % (2.0-8.0); NEUTROPHILS % 63.5 % (40.0-76.0); PLATELET 171 x1000/uL (130-400); RED BLOOD CELL COUNT 4.13 mill/uL (4.2-5.4); RED CELL DISTRIBUTION WIDTH 23.2 % (11.6-14.6)
[2022-08-07] MEDS: INSULIN LISPRO 100 UNITS/ML SUBCUT SCH ×4 (06:00→17:22)
[2022-08-07] MEDS: LACTULOSE 20G/30ML UDC PO SCH ×3 (06:03→22:46)
[2022-08-07] MEDS: BLOOD SUGAR DIAGNOSTIC STRIP TEST SCH ×4 (06:03→17:16)
[2022-08-07] MEDS: HYDRALAZINE 20MG/ML VIAL IV PRN ×2 (06:04→13:23)
[2022-08-07] MEDS ORDERED: CLONIDINE 0.1MG TABLET PO PRN (06:30)
[2022-08-07] MEDS: PROPOFOL 10MG/ML 100ML 100 ML IV PRN (07:59)
[2022-08-07] MEDS ORDERED: KCL 20MEQ/100ML PREMIX 100 ML IV NR (08:00)
[2022-08-07 08:38] LABS: BG BASE EXCESS 4.5 mmol/L (-2.0-2.0); BG CARBOXYHEMOGLOBIN 0.3 % (0.5-1.5); BG DEOXYHEMOGLOBIN 2.6 % (0.0-5.0); BG FRACTION INSPIRED OXYGEN 40; BG HCO3 ACT 28.2 mmol/L (22.0-26.0); BG METHEMOGLOBIN 1.2 % (0.0-1.5); BG OXYGEN SATURATION 97.4 % (92.0-98.5); BG OXYHEMOGLOBIN 95.9 % (94.0-97.0); BG PCO2 38.6 mmHg (35.0-45.0); BG PH 7.481 (7.350-7.450); BG PO2 101.3 mmHg (75.0-100.0); BG SAMPLE SITE RIGHT RADIAL; BG TOTAL HEMOGLOBIN 11.7 g/dL (12.0-18.0); BG VENT MODE VENT - AC
[2022-08-07] MEDS: CARVEDILOL 3.125 MG TABLET PO SCH (08:51)
[2022-08-07] MEDS: FUROSEMIDE 40MG/4ML VIAL IVP SCH ×2 (08:52→17:21)
[2022-08-07] MEDS: PANTOPRAZOLE SODIUM 40 MG/VIAL IV SCH (08:53)
[2022-08-07] MEDS ORDERED: POTASSIUM CHLORIDE 20MEQ TABLET SR PO NR (09:15)
[2022-08-07 10:07] LABS: ANGIOTENSION CONVERTING ENZYME 51 U/L (14-82)
[2022-08-07] MEDS ORDERED: POTASSIUM CHLORIDE INJ 40 MEQ in DEXT 5% WATER 500 ML IV ONE (11:00)
[2022-08-07] MEDS ORDERED: LIDOCAINE HCL/PF 1% 10 MG/ML 5ML VIAL ONE (13:13)
[2022-08-07] MEDS: AMLODIPINE 10MG TABLET PO SCH (13:24)
[2022-08-07] MEDS ORDERED: CLONIDINE HCL 0.2MG/24HR PATCH TD SCH (14:00)
[2022-08-07 14:40] LABS: BG BASE EXCESS 4.8 mmol/L (-2.0-2.0); BG CARBOXYHEMOGLOBIN 1.2 % (0.5-1.5); BG DEOXYHEMOGLOBIN 1.9 % (0.0-5.0); BG FRACTION INSPIRED OXYGEN 40; BG HCO3 ACT 29.9 mmol/L (22.0-26.0); BG METHEMOGLOBIN 0.5 % (0.0-1.5); BG OXYGEN SATURATION 98.1 % (92.0-98.5); BG OXYHEMOGLOBIN 96.4 % (94.0-97.0); BG PCO2 46.3 mmHg (35.0-45.0); BG PH 7.428 (7.350-7.450); BG PO2 113.5 mmHg (75.0-100.0); BG SAMPLE SITE LEFT RADIAL; BG TOTAL HEMOGLOBIN 13.1 g/dL (12.0-18.0); BG VENT MODE VENT - CPAP
[2022-08-07] MEDS: CLONIDINE 0.3MG TABLET PO SCH ×2 (15:10→22:46)
[2022-08-07 17:06] LABS: ANTI-MYELOPEROXIDASE AB < 0.2 units (0.0-0.9); ANTI-PROTEINASE 3 ABS < 0.2 units (0.0-0.9)
[2022-08-07] MEDS: AZITHROMYCIN 500 MG in DEXT 5% WATER 250 ML IV SCH (17:21)
[2022-08-07] MEDS: CEFTRIAXONE 1,000 MG in DEXTROSE 5% WATER 50 ML IV SCH (17:21)
[2022-08-07] MEDS: ENOXAPARIN 30MG/0.3ML SYR SUBCUT SCH (22:44)
[2022-08-07] MEDS: CARVEDILOL 6.25 MG TABLET PO SCH (22:45)
[2022-08-08] VITALS (88 sets, daily range): BP systolic 133–167; BP diastolic 70–100
[2022-08-08] MEDS: IPRATROPIUM/ALBUTEROL 0.5-3(2.5)MG/3ML NEB HHN SCH ×4 (01:38→20:54)
[2022-08-08] MEDS: BLOOD SUGAR DIAGNOSTIC STRIP TEST SCH ×4 (06:21→17:20)
[2022-08-08] MEDS: CLONIDINE 0.3MG TABLET PO SCH ×3 (06:21→21:51)
[2022-08-08] MEDS: LACTULOSE 20G/30ML UDC PO SCH ×3 (06:21→21:51)
[2022-08-08] MEDS: INSULIN LISPRO 100 UNITS/ML SUBCUT SCH ×4 (06:22→17:21)
[2022-08-08 06:58] LABS: BASOPHILS % 0.9 % (0.0-2.0); EOSINOPHILS % 5.7 % (0.0-5.0); HEMATOCRIT. 33.1 % (36.0-48.0); HEMOGLOBIN. 10.9 g/dL (12.0-16.0); LYMPHOCYTES % 10.9 % (20.0-50.0); MEAN CORPUSCULAR HEMOGLOBIN 25.8 pg (28.0-32.0); MEAN CORPUSCULAR VOLUME 78.1 fL (81.0-99.0); MEAN PLATELET VOLUME 8.8 fl (7.4-10.4); MONOCYTES % 13.1 % (2.0-8.0); NEUTROPHILS % 69.4 % (40.0-76.0); PLATELET 172 x1000/uL (130-400); RED BLOOD CELL COUNT 4.24 mill/uL (4.2-5.4); RED CELL DISTRIBUTION WIDTH 22.5 % (11.6-14.6)
[2022-08-08 07:07] LABS: CHLORIDE 104 mEq/L (98-107)
[2022-08-08] MEDS: FUROSEMIDE 40MG/4ML VIAL IVP SCH ×2 (07:52→17:20)
[2022-08-08] MEDS: PANTOPRAZOLE SODIUM 40 MG/VIAL IV SCH (08:32)
[2022-08-08] MEDS: AMLODIPINE 10MG TABLET PO SCH (08:33)
[2022-08-08] MEDS: CARVEDILOL 6.25 MG TABLET PO SCH ×2 (08:33→21:51)
[2022-08-08 13:06] LABS: ATYPICAL P-ANCA <1:20 titer (Neg:<1:20); CYTOPLASMIC C-ANCA <1:20 titer (Neg:<1:20); PERINUCLEAR P-ANCA <1:20 titer (Neg:<1:20)
[2022-08-08] MEDS: HYDRALAZINE HCL 25MG TABLET PO SCH (21:50)
[2022-08-08] MEDS: ENOXAPARIN 30MG/0.3ML SYR SUBCUT SCH (21:50)
[2022-08-09] VITALS (36 sets, daily range): BP systolic 123–186; BP diastolic 37–108
[2022-08-09] MEDS: BLOOD SUGAR DIAGNOSTIC STRIP TEST SCH ×6 (06:00→21:05)
[2022-08-09] MEDS: INSULIN LISPRO 100 UNITS/ML SUBCUT SCH ×4 (06:00→20:00)
[2022-08-09 06:06] LABS: BASOPHILS % 0.9 % (0.0-2.0); EOSINOPHILS % 6.8 % (0.0-5.0); HEMATOCRIT. 30.1 % (36.0-48.0); HEMOGLOBIN. 9.6 g/dL (12.0-16.0); LYMPHOCYTES % 18.5 % (20.0-50.0); MEAN CORPUSCULAR VOLUME 78.5 fL (81.0-99.0); MEAN PLATELET VOLUME 8.8 fl (7.4-10.4); MONOCYTES % 8.3 % (2.0-8.0); NEUTROPHILS % 65.5 % (40.0-76.0); PLATELET 175 x1000/uL (130-400); RED BLOOD CELL COUNT 3.84 mill/uL (4.2-5.4)
[2022-08-09] MEDS: IPRATROPIUM/ALBUTEROL 0.5-3(2.5)MG/3ML NEB HHN SCH ×4 (07:41→21:26)
[2022-08-09] MEDS: LACTULOSE 20G/30ML UDC PO SCH ×2 (07:44→15:11)
[2022-08-09] MEDS: CLONIDINE 0.3MG TABLET PO SCH ×3 (07:44→21:03)
[2022-08-09] MEDS: FUROSEMIDE 40MG/4ML VIAL IVP SCH ×2 (07:45→17:49)
[2022-08-09] MEDS: AMLODIPINE 10MG TABLET PO SCH (08:32)
[2022-08-09] MEDS: PANTOPRAZOLE SODIUM 40 MG/VIAL IV SCH (08:32)
[2022-08-09] MEDS: CARVEDILOL 6.25 MG TABLET PO SCH ×2 (08:33→20:57)
[2022-08-09] MEDS: HYDRALAZINE HCL 25MG TABLET PO SCH (08:33)
[2022-08-09] MEDS ORDERED: POTASSIUM CHLORIDE 20MEQ TABLET SR PO NR (10:15)
[2022-08-09] MEDS: HYDRALAZINE HCL 50MG TABLET PO SCH ×2 (15:10→21:05)
[2022-08-09] MEDS: ENOXAPARIN 30MG/0.3ML SYR SUBCUT SCH (20:57)
[2022-08-10] VITALS (8 sets, daily range): BP systolic 125–174; BP diastolic 71–95
[2022-08-10] MEDS: HYDRALAZINE HCL 50MG TABLET PO SCH ×3 (05:17→21:21)
[2022-08-10] MEDS: CLONIDINE 0.3MG TABLET PO SCH ×3 (05:18→22:00)
[2022-08-10 06:31] LABS: BASOPHILS % 0.6 % (0.0-2.0); EOSINOPHILS % 7.3 % (0.0-5.0); HEMATOCRIT. 32.2 % (36.0-48.0); HEMOGLOBIN. 10.4 g/dL (12.0-16.0); LYMPHOCYTES % 20.3 % (20.0-50.0); MEAN CORPUSCULAR HEMOGLOBIN 25.2 pg (28.0-32.0); MEAN CORPUSCULAR VOLUME 77.8 fL (81.0-99.0); MEAN PLATELET VOLUME 8.7 fl (7.4-10.4); MONOCYTES % 10.5 % (2.0-8.0); NEUTROPHILS % 61.3 % (40.0-76.0); PLATELET 195 x1000/uL (130-400); RED BLOOD CELL COUNT 4.14 mill/uL (4.2-5.4); RED CELL DISTRIBUTION WIDTH 21.6 % (11.6-14.6)
[2022-08-10] MEDS: BLOOD SUGAR DIAGNOSTIC STRIP TEST SCH ×4 (07:40→21:27)
[2022-08-10] MEDS: FUROSEMIDE 40MG/4ML VIAL IVP SCH ×2 (08:54→17:06)
[2022-08-10] MEDS: PANTOPRAZOLE SODIUM 40 MG/VIAL IV SCH (08:54)
[2022-08-10] MEDS: ASPIRIN 81MG EC TABLET PO SCH (08:55)
[2022-08-10] MEDS: DULOXETINE HCL 30MG DR CAPSULE PO SCH (08:55)
[2022-08-10] MEDS: GABAPENTIN 300MG CAPSULE PO SCH ×3 (08:55→17:00)
[2022-08-10] MEDS: ATORVASTATIN CALCIUM 40MG TABLET PO SCH (08:56)
[2022-08-10] MEDS: CARVEDILOL 6.25 MG TABLET PO SCH ×2 (08:57→21:21)
[2022-08-10] MEDS: METOCLOPRAMIDE HCL 5MG TABLET PO SCH ×3 (08:57→17:06)
[2022-08-10] MEDS: AMLODIPINE 10MG TABLET PO SCH (08:58)
[2022-08-10] MEDS ORDERED: CLONIDINE 0.3MG TABLET PO SCH (09:00)
[2022-08-10] MEDS ORDERED: AMLODIPINE 10MG TABLET PO SCH (09:00)
[2022-08-10] MEDS ORDERED: CARVEDILOL 3.125 MG TABLET PO SCH (09:00)
[2022-08-10] MEDS: INSULIN LISPRO 100 UNITS/ML SUBCUT SCH ×4 (09:01→23:28)
[2022-08-10] MEDS: HYDRALAZINE 20MG/ML VIAL IV PRN (09:07)
[2022-08-10] MEDS: IPRATROPIUM/ALBUTEROL 0.5-3(2.5)MG/3ML NEB HHN SCH ×3 (09:13→21:09)
[2022-08-10] MEDS ORDERED: COR25 PO (10:13)
[2022-08-10] MEDS ORDERED: FURO20TA4 PO (10:24)
[2022-08-10] MEDS ORDERED: GABA-533 PO (10:24)
[2022-08-10] MEDS ORDERED: ISOS20TA8 PO (10:25)
[2022-08-10] MEDS ORDERED: LORA10TA7 PO (10:43)
[2022-08-10] MEDS ORDERED: SEVE0.8P PO (10:44)
[2022-08-10] MEDS ORDERED: INSNOV SUBCUT (10:45)
[2022-08-10] MEDS ORDERED: EMPA10TA PO (10:46)
[2022-08-10] MEDS ORDERED: DULO60CA64 PO (10:49)
[2022-08-10] MEDS ORDERED: GABA-529 PO ×5 (12:53→12:57)
[2022-08-10] MEDS: BENAZEPRIL 5MG TABLET PO SCH ×2 (13:36→21:27)
[2022-08-10] MEDS ORDERED: POTASSIUM CHLORIDE 20MEQ TABLET SR PO NR (18:45)
[2022-08-10] MEDS ORDERED: MAGNESIUM HYDROXIDE 400MG/5ML 30ML UDC PO PRN (21:15)
[2022-08-10] MEDS: ENOXAPARIN 30MG/0.3ML SYR SUBCUT SCH (21:28)
[2022-08-11 00:17] VITALS: BP 142/76
[2022-08-11] MEDS: IPRATROPIUM/ALBUTEROL 0.5-3(2.5)MG/3ML NEB HHN SCH ×3 (01:23→12:23)
[2022-08-11 04:00] VITALS: BP 144/86
[2022-08-11] MEDS: HYDRALAZINE HCL 50MG TABLET PO SCH ×2 (06:16→13:21)
[2022-08-11] MEDS: FUROSEMIDE 40MG/4ML VIAL IVP SCH ×2 (06:16→17:19)
[2022-08-11] MEDS: CLONIDINE 0.3MG TABLET PO SCH ×2 (06:16→13:21)
[2022-08-11 06:47] LABS: BASOPHILS % 0.9 % (0.0-2.0); EOSINOPHILS % 7.2 % (0.0-5.0); HEMATOCRIT. 31.3 % (36.0-48.0); HEMOGLOBIN. 9.9 g/dL (12.0-16.0); LYMPHOCYTES % 21.7 % (20.0-50.0); MEAN CORPUSCULAR HEMOGLOBIN 24.5 pg (28.0-32.0); MEAN CORPUSCULAR VOLUME 77.1 fL (81.0-99.0); MEAN PLATELET VOLUME 9.1 fl (7.4-10.4); MONOCYTES % 8.7 % (2.0-8.0); NEUTROPHILS % 61.5 % (40.0-76.0); PLATELET 200 x1000/uL (130-400); RED BLOOD CELL COUNT 4.06 mill/uL (4.2-5.4); RED CELL DISTRIBUTION WIDTH 21.5 % (11.6-14.6)
[2022-08-11] MEDS: BLOOD SUGAR DIAGNOSTIC STRIP TEST SCH ×3 (07:49→16:48)
[2022-08-11 08:00] VITALS: BP 124/70
[2022-08-11] MEDS: PANTOPRAZOLE SODIUM 40 MG/VIAL IV SCH (09:40)
[2022-08-11] MEDS: CARVEDILOL 6.25 MG TABLET PO SCH (09:41)
[2022-08-11] MEDS: GABAPENTIN 300MG CAPSULE PO SCH ×3 (09:41→17:20)
[2022-08-11] MEDS: DULOXETINE HCL 30MG DR CAPSULE PO SCH (09:41)
[2022-08-11] MEDS: BENAZEPRIL 5MG TABLET PO SCH (09:41)
[2022-08-11] MEDS: ATORVASTATIN CALCIUM 40MG TABLET PO SCH (09:41)
[2022-08-11] MEDS: AMLODIPINE 10MG TABLET PO SCH (09:41)
[2022-08-11] MEDS: ASPIRIN 81MG EC TABLET PO SCH (09:42)
[2022-08-11] MEDS: METOCLOPRAMIDE HCL 5MG TABLET PO SCH ×3 (09:42→17:20)
[2022-08-11] MEDS: INSULIN LISPRO 100 UNITS/ML SUBCUT SCH ×3 (09:42→17:23)
[2022-08-11] MEDS ORDERED: POLYETHYLENE GLYCOL 3350 (17GM) 1 DOSE PACK PO NR (10:45)
[2022-08-11 12:00] VITALS: BP 145/81
[2022-08-11] MEDS ORDERED: SORBITOL 70% SOLN 30ML PO NR (13:15)
[2022-08-11 16:00] VITALS: BP 128/78
== END 2022-08-11 19:05 | disposition home health service (06) | DRG 870 ==
LOC: ER 11:06 → CVICU 13:49 → EDBEDREQTM 13:52 → EDBEDREQ 13:52 → EDBEDREQSVC 13:52 → 7WST 08-09 22:36
PROVIDERS: ADMIT Internal Medicine; ATTEND Internal Medicine
PROC: 5A1955Z Respiratory Ventilation, Greater than 96 Consecutive Hours (ICD-10-PCS; principal; 2022-08-02)
PROC: 0BH17EZ Insertion of Endotracheal Airway into Trachea, Via Natural or Artificial Opening (ICD-10-PCS; 2022-08-02)
PROC: 06HY33Z Insertion of Infusion Device into Lower Vein, Percutaneous Approach (ICD-10-PCS; 2022-08-03)
PROC: 0W9G3ZZ Drainage of Peritoneal Cavity, Percutaneous Approach (ICD-10-PCS; 2022-08-04)
PROC: 4A00X4Z Measurement of Central Nervous Electrical Activity, External Approach (ICD-10-PCS; 2022-08-05)
PROC: 05HY33Z Insertion of Infusion Device into Upper Vein, Percutaneous Approach (ICD-10-PCS; 2022-08-07)
PROC: 5A0935A Assistance with Respiratory Ventilation, Less than 24 Consecutive Hours, High Flow/Velocity Cannula (ICD-10-PCS; 2022-08-08)
DX: A41.9 Sepsis, unspecified organism (principal); J96.01 Acute respiratory failure with hypoxia; G92.8 Other toxic encephalopathy; J96.02 Acute respiratory failure with hypercapnia; J18.9 Pneumonia, unspecified organism; I50.32 Chronic diastolic (congestive) heart failure; N17.9 Acute kidney failure, unspecified; E44.1 Mild protein-calorie malnutrition; D68.59 Other primary thrombophilia; I42.9 Cardiomyopathy, unspecified; N18.4 Chronic kidney disease, stage 4 (severe); R18.8 Other ascites; I13.0 Hypertensive heart and chronic kidney disease with heart failure and stage 1 through stage 4 chronic kidney disease, or unspecified chronic kidney disease; I31.39 Other pericardial effusion (noninflammatory); E72.4 Disorders of ornithine metabolism; E87.20 Acidosis, unspecified; Y99.8 Other external cause status; E11.22 Type 2 diabetes mellitus with diabetic chronic kidney disease; N83.9 Noninflammatory disorder of ovary, fallopian tube and broad ligament, unspecified; K80.20 Calculus of gallbladder without cholecystitis without obstruction; G93.89 Other specified disorders of brain; F32.A Depression, unspecified; I65.29 Occlusion and stenosis of unspecified carotid artery; E78.00 Pure hypercholesterolemia, unspecified; D50.9 Iron deficiency anemia, unspecified; D63.1 Anemia in chronic kidney disease; K57.30 Diverticulosis of large intestine without perforation or abscess without bleeding; K21.9 Gastro-esophageal reflux disease without esophagitis; E78.5 Hyperlipidemia, unspecified; G89.29 Other chronic pain; E66.9 Obesity, unspecified; S50.821A Blister (nonthermal) of right forearm, initial encounter; I25.10 Atherosclerotic heart disease of native coronary artery without angina pectoris; K74.60 Unspecified cirrhosis of liver; Z20.822 Contact with and (suspected) exposure to COVID-19; M79.7 Fibromyalgia; D63.0 Anemia in neoplastic disease; N94.89 Other specified conditions associated with female genital organs and menstrual cycle; Z91.018 Allergy to other foods; Z88.8 Allergy status to other drugs, medicaments and biological substances; Z90.710 Acquired absence of both cervix and uterus; Z68.35 Body mass index [BMI] 35.0-35.9, adult; Z79.4 Long term (current) use of insulin; Z79.84 Long term (current) use of oral hypoglycemic drugs; Z79.899 Other long term (current) drug therapy; Z86.711 Personal history of pulmonary embolism; Z86.73 Personal history of transient ischemic attack (TIA), and cerebral infarction without residual deficits; X58.XXXA Exposure to other specified factors, initial encounter; Y93.89 Activity, other specified; Y92.89 Other specified places as the place of occurrence of the external cause
CPT/HCPCS: 31500; 36415; 36573; 36600; 49083; 70551; 71045; 71250; 74018; 74176; 76700; 76705; 76856; 78580; 80048; 80053; 80061; 80076; 80305; 80320; 81003; 82105; 82140; 82164; 82375; 82378; 82550; 82553; 82570; 82607; 82728; 82746; 82805; 82962; 83036; 83520; 83540; 83550; 83605; 83615; 83735; 83880; 84132; 84145; 84300; 84439; 84443; 84478; 84484; 84540; 85025; 85044; 85303; 85306; 85379; 85384; 85651; 86038; 86160; 86256; 86304; 86705; 86709; 86803; 87070; 87340; 87426; 88108; 88312; 92610; 93005; 93306; 93880; 93970; 93976; 94002; 94003; 94640; 95816; 97162; 99285; C1725; C9113; J0360; J0456; J0696; J1650; J1815; J1940; J2250; J2543; J2704; J3010; J3370; J3480; J3490; J7060; J8597; G0480